=== PATIENT | female | born 1945 | race Two or more races ===

== ENCOUNTER 2019-12-06 09:30 | Inpatient (IN) | payer OTHER ==
[~2019-12-06] VITALS: Ht 152.4 cm; Wt 76.7 kg
[2019-12-06] MEDS ORDERED: IPRATROPIUM BROM 0.5 MG/2.5ML INH SOL HHN ONE (09:45)
[2019-12-06] MEDS ORDERED: ALBUTEROL SULF 2.5 MG/0.5ML(0.5%) NEB SOLN HHN ONE (09:45)
[2019-12-06] MEDS ORDERED: DexAMETHasone INJECTION 10 MG in D5W 5% 50 ML IV ONE (09:45)
[2019-12-06] MEDS ORDERED: NIFEdipine 10 MG CAP PO ONE ×2 (09:45)
[2019-12-06] MEDS: DexAMETHasone INJECTION 10 MG in D5W 5% 50 ML IV SCH ×2 (10:00→22:12)
[2019-12-06] MEDS ORDERED: dilTIAZem 25 MG/5 ML VIAL IV ONE (11:00)
[2019-12-06 11:21] LABS: Urine Bacteria NONE SEEN /hpf (None Seen); Urine Blood Negative /uL (Negative); Urine Specific Gravity 1.008 (1.001-1.035); Urine WBC 21 /hpf (0 - 5)
[2019-12-06 12:01] LABS: Basophils # (auto) 0.1 10 ^3/uL (0-0.2); Basophils % (auto) 0.6 % (0.0-2.0); Eosinophils # (auto) 0.2 10 ^3/uL (0-0.8); Eosinophils % (auto) 0.8 % (0.0-7.0); Hematocrit 33.8 % (36.0-46.0); Hemoglobin 11.1 g/dL (12.2-16.2); Lymphocytes # (auto) 1.8 10 ^3/uL (0.4-5.4); Lymphocytes % (auto) 8.7 % (10.0-50.0); Mean Corpuscular Hemoglobin 30.5 pg (28.0-32.0); Mean Corpuscular Hgb Conc. 32.9 g/dL (32.0-36.0); Mean Corpuscular Volume 92.6 fL (80.0-100.0); Monocytes # (auto) 1.1 10 ^3/uL (0-1.3); Monocytes % (auto) 5.3 % (0.0-12.0); Neutrophils # (auto) 18.1 10 ^3/uL (1.6-8.6); Neutrophils % (auto) 84.6 % (37.0-80.0); Nucleated Red Blood Cells % 0.1 %; Platelet Count (auto) 229 10^3/uL (140-450); Red Blood Cells 3.64 10^6/uL (4.0-5.20); Red Cell Distribution Width 14.7 % (11.8-14.3); White Blood Cell 21.3 10^3/uL (4.4-10.8)
[2019-12-06 12:19] LABS: Carbon Dioxide 24 mmol/L (21-32); Chloride 102 mmol/L (98-107); Potassium 4.4 mmol/L (3.5-5.1); Sodium 134 mmol/L (136-145)
[2019-12-06 12:20] LABS: Albumin 3.7 g/dL (3.4-5.0); Anion Gap 8 (5-15); Blood Urea Nitrogen 19 mg/dL (7-18); Calcium 9.3 mg/dL (8.5-10.1); Glucose 251 mg/dL (74-106); Magnesium 1.7 mg/dL (1.6-2.6)
[2019-12-06 12:26] LABS: Alanine Aminotransferase 54 U/L (13-56); Alkaline Phosphatase 102 U/L (45-117); Aspartate Aminotransferase 35 U/L (15-37); BUN/Creatinine Ratio 22.4; Bilirubin, Total 0.5 mg/dL (0.2-1.0); GFR African American 84 mL/min; GFR Non-African American 69 mL/min; Total Protein 7.4 g/dL (6.4-8.2)
[2019-12-06 14:56] LABS: Partial Thromboplastin Time 25.6 sec (23.0-31.2)
[2019-12-06 15:06] LABS: CRP High Sensitivity 1.22 mg/dL (< 0.3)
[2019-12-06] MEDS ORDERED: LORazepam 2MG/ML-1ML VIAL IV PRN ×2 (15:45→22:30)
[2019-12-06] MEDS ORDERED: hydrALAZINE HCL 20 MG/ML VL IV PRN (15:45)
[2019-12-06] MEDS ORDERED: NITROGLYCERIN 0.4 MG SL TAB SL PRN (15:45)
[2019-12-06] MEDS ORDERED: MORPHINE SULF INJ 2 MG/ML SYRINGE 1ML IV PRN (15:45)
[2019-12-06] MEDS: SODIUM CHLORIDE 0.9% 1,000 ML IV SCH (16:17)
[2019-12-06] MEDS ORDERED: MORPHINE SULF INJ 2 MG/ML SYRINGE 1ML IV ONE (16:45)
[2019-12-06] MEDS ORDERED: DIGOXIN (250MCG/ML) 2 ML AMPULE IV ONE (19:00)
[2019-12-06] MEDS ORDERED: BUDESONIDE (INHALATION) 180 MCG IH IN SCH (22:00)
[2019-12-06] MEDS ORDERED: ALBUTEROL SULF HFA 90MCG INH 200DOSE IN SCH (22:00)
[2019-12-06] MEDS: CLINDAMYCIN 600MG IV 50 ML IV SCH (22:11)
[2019-12-06] MEDS: METOPROLOL TARTRATE 50 MG TAB PO SCH (22:12)
[2019-12-06 22:54] LABS: Cholesterol 196 mg/dL (< 200); HDL Cholesterol 48 mg/dL (40-59); LDL Cholesterol 97 mg/dL (< 100); Triglycerides 280 mg/dL (< 150)
[2019-12-06] MEDS: ATORVASTATIN 20 MG TAB PO SCH (23:14)
[2019-12-07] MEDS ORDERED: MORPHINE SULF INJ 2 MG/ML SYRINGE 1ML IV PRN (01:15)
[2019-12-07] MEDS: CLINDAMYCIN 600MG IV 50 ML IV SCH ×3 (06:32→22:55)
[2019-12-07] MEDS ORDERED: LORazepam 2MG/ML-1ML VIAL IV ONE (06:45)
[2019-12-07 07:12] LABS: Basophils # (auto) 0 10 ^3/uL (0-0.2); Basophils % (auto) 0.5 % (0.0-2.0); Eosinophils # (auto) 0 10 ^3/uL (0-0.8); Hematocrit 31.5 % (36.0-46.0); Hemoglobin 10.7 g/dL (12.2-16.2); Lymphocytes # (auto) 0.6 10 ^3/uL (0.4-5.4); Lymphocytes % (auto) 6.6 % (10.0-50.0); Mean Corpuscular Hemoglobin 31.4 pg (28.0-32.0); Mean Corpuscular Hgb Conc. 33.9 g/dL (32.0-36.0); Mean Corpuscular Volume 92.7 fL (80.0-100.0); Monocytes # (auto) 0.2 10 ^3/uL (0-1.3); Monocytes % (auto) 1.9 % (0.0-12.0); Neutrophils # (auto) 8.4 10 ^3/uL (1.6-8.6); Platelet Count (auto) 307 10^3/uL (140-450); Red Cell Distribution Width 14.6 % (11.8-14.3); White Blood Cell 9.2 10^3/uL (4.4-10.8)
[2019-12-07 07:34] LABS: Calcium 8.9 mg/dL (8.5-10.1)
[2019-12-07 07:40] LABS: Albumin 3.3 g/dL (3.4-5.0); BUN/Creatinine Ratio 25.7; Bilirubin, Total 0.5 mg/dL (0.2-1.0)
[2019-12-07] MEDS ORDERED: PANTOPRAZOLE 40 MG/10 ML VIAL INJ IV SCH (10:00)
[2019-12-07] MEDS ORDERED: ASPirin-EC 81 mg tab PO SCH (10:00)
[2019-12-07] MEDS: METOPROLOL TARTRATE 50 MG TAB PO SCH ×2 (10:44→22:00)
[2019-12-07] MEDS ORDERED: levoFLOXacin 750MG 150 ML IV ONE (11:00)
[2019-12-07] MEDS ORDERED: dilTIAZem 25 MG/5 ML VIAL IV ONE (15:45)
[2019-12-07] MEDS: SODIUM CHLORIDE 0.9% 1,000 ML IV SCH (15:56)
[2019-12-07] MEDS ORDERED: DEXTROSE (50%) 50ML SYRG IV PRN (21:15)
[2019-12-07] MEDS ORDERED: FUROSEMIDE 20 MG/2 ML VIAL IV SCH (21:15)
[2019-12-07] MEDS: ATORVASTATIN 20 MG TAB PO SCH (22:00)
[2019-12-07] MEDS ORDERED: InsuLIN REG 1unit/0.01ml Soln (100units/ml) SC SCH (22:00)
[2019-12-07] MEDS ORDERED: ACCU-CHEK COMFORT CURVE STRIP VI SCH (22:00)
[2019-12-08 00:59] VITALS: BP 121/51
[2019-12-08] MEDS ORDERED: InsuLIN REG 1unit/0.01ml Soln (100units/ml) SC SCH (07:00)
[2019-12-08] MEDS ORDERED: levoFLOXacin 750MG 150 ML IV SCH (10:00)
== END 2019-12-08 06:15 | disposition short-term general hospital (02) | DRG 64 ==
LOC: ER 09:30 → EDBD 09:30 → TELE 09:31
PROVIDERS: ADMIT Family Medicine; ATTEND Family Medicine
DX: I63.89 Other cerebral infarction (principal); J69.0 Pneumonitis due to inhalation of food and vomit; D68.69 Other thrombophilia; E87.1 Hypo-osmolality and hyponatremia; G81.94 Hemiplegia, unspecified affecting left nondominant side; G93.49 Other encephalopathy; I13.0 Hypertensive heart and chronic kidney disease with heart failure and stage 1 through stage 4 chronic kidney disease, or unspecified chronic kidney disease; I48.92 Unspecified atrial flutter; J44.0 Chronic obstructive pulmonary disease with (acute) lower respiratory infection; J44.1 Chronic obstructive pulmonary disease with (acute) exacerbation; N39.0 Urinary tract infection, site not specified; I48.19 Other persistent atrial fibrillation; Z20.828 Contact with and (suspected) exposure to other viral communicable diseases; R47.01 Aphasia; D63.8 Anemia in other chronic diseases classified elsewhere; E11.22 Type 2 diabetes mellitus with diabetic chronic kidney disease; E66.9 Obesity, unspecified; F17.200 Nicotine dependence, unspecified, uncomplicated; I16.0 Hypertensive urgency; I50.9 Heart failure, unspecified; M81.0 Age-related osteoporosis without current pathological fracture; N18.30 Chronic kidney disease, stage 3 unspecified; E11.65 Type 2 diabetes mellitus with hyperglycemia; Z79.82 Long term (current) use of aspirin; Z79.84 Long term (current) use of oral hypoglycemic drugs; Z79.899 Other long term (current) drug therapy; Z82.49 Family history of ischemic heart disease and other diseases of the circulatory system; Z83.3 Family history of diabetes mellitus; Z68.33 Body mass index [BMI] 33.0-33.9, adult; Z90.49 Acquired absence of other specified parts of digestive tract; Z88.0 Allergy status to penicillin
CPT/HCPCS: 36415; 70450; 70551; 71045; 80053; 80061; 81001; 82728; 82962; 83036; 83605; 83615; 83735; 83880; 84443; 84484; 85025; 85379; 85610; 85730; 86141; 87040; 87086; 87426; 93005; 93306; 93886; 93970; 94640; C9113; G0378; J1100; J1815; J1956; J3490; J7060